=== PATIENT | female | born 1940 | race Caucasian/White ===

== ENCOUNTER 2017-06-26 08:00 | Inpatient (IN) | payer OTHER ==
[~2017-06-26] VITALS: Ht 160 cm; Wt 99.3 kg
[2017-06-27] MEDS ORDERED: CARVEDILOL12.5 MG PO (07:45)
[2017-06-27] MEDS ORDERED: NIFE60TA3 PO (07:45)
[2017-06-27] MEDS ORDERED: LISINOPRIL40 MG PO (07:45)
[2017-06-27] MEDS ORDERED: AMARYL PO (07:46)
[2017-06-27] MEDS ORDERED: METFORMIN HCL500 MG PO (07:46)
[2017-06-27] MEDS ORDERED: ASA325 MG PO (07:47)
[2017-06-27] MEDS ORDERED: ALUPURINOL PO (07:47)
[2017-06-27] MEDS ORDERED: TRICOR48 MG PO (07:47)
[2017-07-09] MEDS ORDERED: LEVSIN/SL0.125 MG PO (09:16)
[2017-07-09] MEDS ORDERED: GAS RELIEF125 MG PO (09:17)
[2017-07-09] MEDS ORDERED: ULTRACET PO (09:17)
== END 2017-07-09 12:14 | disposition home or self-care (01) | DRG 331 ==
LOC: SURH 07-03 07:00 → O/R 07-03 08:10 → SURH 07-03 15:30 → SURG 07-05 17:12 → SURH 07-05 18:35 → MEDI 07-05 18:35 → SURH 07-05 18:35
PROVIDERS: Surgery
PROC: 07TC4ZZ Resection of Pelvis Lymphatic, Percutaneous Endoscopic Approach (ICD-10-PCS; 2017-07-03)
PROC: 0DJD8ZZ Inspection of Lower Intestinal Tract, Via Natural or Artificial Opening Endoscopic (ICD-10-PCS; 2017-07-03)
PROC: 4A1BXSH Monitoring of Gastrointestinal Vascular Perfusion using Indocyanine Green Dye, External Approach (ICD-10-PCS; 2017-07-03)
PROC: 4A033R1 Measurement of Arterial Saturation, Peripheral, Percutaneous Approach (ICD-10-PCS; 2017-07-03)
PROC: 0DTN4ZZ Resection of Sigmoid Colon, Percutaneous Endoscopic Approach (ICD-10-PCS; principal; 2017-07-03 07:00)
PROC: 4A12X4Z Monitoring of Cardiac Electrical Activity, External Approach (ICD-10-PCS; 2017-07-04)
DX: D12.5 Benign neoplasm of sigmoid colon (principal); E66.01 Morbid (severe) obesity due to excess calories; G47.33 Obstructive sleep apnea (adult) (pediatric); E11.9 Type 2 diabetes mellitus without complications; I11.9 Hypertensive heart disease without heart failure; E03.8 Other specified hypothyroidism; E78.00 Pure hypercholesterolemia, unspecified; M10.09 Idiopathic gout, multiple sites; K52.89 Other specified noninfective gastroenteritis and colitis